=== PATIENT | female | born 1970 | race Caucasian/White ===

== ENCOUNTER → 2016-10-12 | Outpatient (CLI) | payer BC ==
[~2016-10-12] MED LIST: ACET30TA PO; BUPR200T2 PO; CMD2 PO; HYDR-5688 PO; LORA24TA7 PO; MAGNSUS5 PO; PEDICHW50 PO
--- NOTE | 2016-10-12 10:30 | DIAGNOSTIC IMAGING REPORT ---
LEFT ANKLE 3 VIEWS HISTORY: LEFT ANKLE PAIN COMPARISON: None. FINDINGS: There is no fracture or dislocation. Soft tissue swelling. Plantar heel spur. No radiopaque foreign bodies. IMPRESSION: No fractures. Electronically signed by: Blair Viera M.D. 10/12/2016 10:28 AM Dictated Date/Time: 10/12/2016 10:27 AM
== END | disposition home or self-care (01) ==
LOC: C.RAD 10:02
PROVIDERS: ATTEND Family Medicine
DX: S99.912A Unspecified injury of left ankle, initial encounter (principal); X58.XXXA Exposure to other specified factors, initial encounter